=== PATIENT | male | born 1980 | race African-American/Black ===

== ENCOUNTER 2016-09-22 18:09 | Emergency (ER) | payer MEDICAID ==
--- NOTE | 2016-09-22 18:29 | Emergency Department Record ---
History of Present Illness - General Stated Complaint: HEADACHE,HAND PAIN Time Seen by Provider: 09/22/16 18:22 Source: Patient Mode of Arrival: Ambulatory Limitations: No limitations - History of Present Illness Initial Comments: 36 yo male presents to ED with a CC of headache that began yesterday morning. Patient denies fevers, chills, or neck stiffness, and denies taking anything for his headache pain at home. Patient denies head injury or trauma, denies the use of anticoagulation medications, and denies health problems. 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 MD Complaint: Headache Onset/Timin -: Days(s) Onset Description: Gradual Location: Diffuse Severity: Moderate Quality: Throbbing Consistency: Constant Improves With: Nothing Worsens With: None Treatments Prior to Arrival: None - Related Data Home Medications Medication Instructions Recorded Confirmed Last Taken No Home Med [NO HOME MEDS] 04/27/16 04/27/16 Unknown Allergies Allergy/AdvReac Type Severity Reaction Status Date / Time No Known Drug Allergies Allergy Verified 04/27/16 08:12 Review of Systems Constitutional: Denies: Chills, Fever, Malaise, Night sweats Eyes: Denies: Eye discharge, Eye pain, Photophobia ENT: Denies: Congestion, Ear pain, Epistaxis Respiratory: Denies: Cough, Dyspnea Cardiovascular: Denies: Chest pain, Dyspnea on exertion Endocrine: Denies: Fatigue, Heat or cold intolerance Gastrointestinal: Denies: Abdominal pain, Nausea, Vomiting Genitourinary: Denies: Incontinence, Retention Musculoskeletal: Reports: Arthralgia (right hand pain). Denies: Back pain, Gout , Joint swelling Skin: Denies: Bruising, Change in color Neurological: Reports: Headache. Denies: Abnormal gait, Confusion Psychiatric: Denies: Anxiety Hematological/Lymphatic: Denies: Anemia, Blood Clots Past Medical History - SOCIAL HISTORY Smoking Status: Light tobacco smoker (<10/day) Drug Use: None - RESPIRATORY Hx Respiratory Disorders: No - CARDIOVASCULAR Hx Cardio Disorders: No - NEURO Hx Neuro Disorders: No - GI Hx GI Disorders: No - Hx Genitourinary Disorders: No - ENDOCRINE Hx Endocrine Disorders: No - MUSCULOSKELETAL Hx Musculoskeletal Disorders: No - PSYCH Hx Psych Problems: No - HEMATOLOGY/ONCOLOGY Hx Hematology/Oncology Disorders: No Family Medical History Hx Diabetes: Mother, Grandparents Physical Exam - General General Appearance: Alert, Oriented x3, Cooperative Limitations: No limitations - Head Head exam: Atraumatic, Normocephalic, Normal inspection Head exam detail: negative: Abrasion, Contusion, Whitfield's sign, General tenderness, Hematoma, Laceration - Eye Eye exam: Normal appearance. negative: Conjunctival injection, Periorbital swelling, Periorbital tenderness - ENT Ear exam: negative: Auricular hematoma, Auricular trauma Nasal Exam: negative: Active bleeding, Discharge, Dried blood, Foreign body Mouth exam: negative: Drooling, Muffled voice, Tongue elevation - Neck Neck exam: Normal inspection. negative: Meningismus, Tenderness - Respiratory Respiratory exam: Normal lung sounds bilaterally. negative: Respiratory distress, Rhonchi, Stridor, Wheezes - Cardiovascular Cardiovascular Exam: Regular rate, Normal rhythm, Normal heart sounds - GI/Abdominal GI/Abdominal exam: Soft - Rectal Rectal exam: Deferred - exam: Deferred - Extremities Extremities exam: Tenderness, Other (Mild STS present to the dorsum of the hand between the index/middle metacarpals with extension, FROM, firer watertender strength normal) . negative: Calf tenderness, Pedal edema - Back Back exam: Denies: CVA tenderness (R), CVA tenderness (L) - Neurological Neurological exam: Alert, Normal gait, Oriented X3 - Psychiatric Psychiatric exam: Normal affect, Normal mood - Skin Skin exam: Normal color. negative: Abrasion Type of lesion: negative: abrasion Course Vital Signs 09/22/16 18:17 Temperature 98.3 F Pulse Rate [ 67 Pulse Ox Probe] Respiratory 14 Rate Blood Pressure 147/85 [Left Arm] Pulse Ox 99 - Reevaluation(s) Reevaluation #1: 09/22/16 19:12 Right hand: No acute process Reevaluation #2: 09/22/16 19:20 Patient reassessed, reports that his headache symptoms are much improved, appears stable for discharge at this time. Disposition Disposition: Discharge Clinical Impression: Hand strain Qualifiers: Encounter type: initial encounter Laterality: right Qualified Code(s): S66.911A - Strain of unspecified muscle, fascia and tendon at wrist and hand level, right hand, initial encounter Cephalalgia Qualifiers: Headache type: unspecified Headache chronicity pattern: acute headache Intractability: not intractable Qualified Code(s): R51 - Headache Disposition: Home, Self-Care Condition: (2) Stable Instructions: Acute Headache (ED) Additional Instructions: Return to ED if your symptoms worsen or if you have any concerns. Ibuprofen as directed. Follow-up with your family doctor in 3-5 days as directed. Time of Disposition: 19:13
[2016-09-22] MEDS: KETOROLAC 60 MG/2 ML VIAL IM STA (18:48)
== END 2016-09-22 19:26 | disposition home or self-care (01) ==
LOC: ER 18:09
DX: S66.911A Strain of unspecified muscle, fascia and tendon at wrist and hand level, right hand, initial encounter (principal); R51 Headache; M79.641 Pain in right hand; X58.XXXA Exposure to other specified factors, initial encounter
CPT/HCPCS: 96372; 99283; J1885

== ENCOUNTER 2017-05-17 19:33 | Emergency (ER) | payer MEDICAID ==
--- NOTE | 2017-05-17 20:24 | Emergency Department Record ---
History of Present Illness - General Chief complaint: Extremity Problem Stated complaint: LEFT LEG PAIN Time Seen by Provider: 05/17/17 20:12 Source: Patient Mode of Arrival: Ambulatory Limitations: No limitations - History of Present Illness Initial comments: The patient is here with a complaint of intermittent L leg numbness and pain for 2 weeks. The symptoms seem to come and go and affect the L leg below the knee. The symptoms mainly come on with walking and sitting up but do resolve when lying and not walking. He denies any trauma, any injury, swelling, fever, chills, or weakness. Presently the symptoms have completely resolved. MD Complaint: Extremity pain Onset/Timin -: Week(s) Location: Left, Lower Leg Quality: Aching Consistency: Intermittent - Related Data Previous Rx's Medication Instructions Recorded Naproxen [Naprosyn] 500 mg PO BID #14 tablet. 05/17/17 Allergies Allergy/AdvReac Type Severity Reaction Status Date / Time No Known Drug Allergies Allergy Unverified 05/07/17 17:16 Review of Systems Constitutional: Denies: Chills, Fever Eyes: Denies: Eye discharge ENT: Denies: Congestion Respiratory: Denies: Cough, Dyspnea Past Medical History - SOCIAL HISTORY Smoking Status: Light tobacco smoker (<10/day) Drug Use: None - RESPIRATORY Hx Respiratory Disorders: No - CARDIOVASCULAR Hx Cardio Disorders: No - NEURO Hx Neuro Disorders: No - GI Hx GI Disorders: No - Hx Genitourinary Disorders: No - ENDOCRINE Hx Endocrine Disorders: No - MUSCULOSKELETAL Hx Musculoskeletal Disorders: No - PSYCH Hx Psych Problems: No - HEMATOLOGY/ONCOLOGY Hx Hematology/Oncology Disorders: No Family Medical History Hx Diabetes: Mother, Grandparents Physical Exam - General General Appearance: Alert, Oriented x3, Cooperative, No acute distress - Head Head exam: Atraumatic, Normocephalic, Normal inspection - Eye Eye exam: Normal appearance, PERRL - Neck Neck exam: Normal inspection, Full ROM. negative: Tenderness - Respiratory Respiratory exam: Normal lung sounds bilaterally. negative: Respiratory distress - Cardiovascular Cardiovascular Exam: Regular rate, Normal rhythm, Normal heart sounds - GI/Abdominal GI/Abdominal exam: Soft, Normal bowel sounds. negative: Tenderness - Extremities Extremities exam: Normal inspection (There is no swelling, bruising or edema appreciated.), Full ROM, Normal capillary refill, Other (DP and PT pulses are 2 + and equal bilaterally.). negative: Calf tenderness, Joint swelling, Pedal edema, Tenderness - Neurological Neurological exam: Alert, Normal gait, Oriented X3, Reflexes normal. negative: Abnormal gait, Altered, Motor sensory deficit - Skin Skin exam: negative: Petechiae, Rash Course Vital Signs 05/17/17 20:12 Temperature 98.4 F Pulse Rate [ 79 Pulse Ox Probe] Respiratory 18 Rate Blood Pressure 109/67 [Right Arm] Pulse Ox 100 - Reevaluation(s) Reevaluation #1: The patient is resting comfortably at this time. He actually is snoring VERY loudly and is in a deep sleep prior to receiving any pain medicines. I did explain to him the lab work does not demonstrate any cause for his pain. We will refer the patient to his PCP for further evaluation. 05/17/17 21:25 Reevaluation #2: The patient is resting comfortably. He denies any pain or discomfort at this time. He is to F/U with his PCP for recheck next week. 05/17/17 21:49 Medical Decision Making - Data Complexity MDM Data: Labs Ordered and/or Reviewed - Lab Data Result diagrams: 05/17/17 20:37 05/17/17 20:37 Disposition Disposition: Discharge Clinical Impression: Leg pain, left Disposition: Home, Self-Care Condition: (2) Stable Instructions: Leg Pain (ED) Additional Instructions: Please take the naprosyn for pain and see your PCP next week for recheck. Return to the ER for any worsening or new symptoms. Prescriptions: Naproxen [Naprosyn] 500 mg PO BID #14 tablet.dr Forms: Patient Portal Access Time of Disposition: 21:51 Quality - Quality Measures Quality Measures: N/A - Blood Pressure Screening View Details: Yes Does Patient Have Any of the Following: No Blood Pressure Classification: Normal BP Reading Systolic Measurement: 109 Diastolic Measurement: 67 Screening for High Blood Pressure: < Normal BP, F/U Not Required > [G8783]
[2017-05-17 20:43] LABS: BASO % 0.3 % (0-6); EOS % 2.3 % (0-6); HEMATOCRIT 42.5 % (42.0-52.0); HEMOGLOBIN 14.2 gm/dl (14.0-18.0); LYMPH % 29.7 % (16-45); MEAN CELL VOLUME 87.1 fl (81-97); MEAN CORPUSCULAR HEMOGLOBIN 29.1 pg (27-33); MEAN CORPUSCULAR HGB CONC 33.4 g/dl (32-36); MONO % 7.7 % (0-9); PLATELET COUNT 256 K/uL (130-400); RED BLOOD COUNT 4.88 M/uL (4.40-5.70); RED CELL DISTRIBUTION WIDTH 13.5 % (11.5-14.5); WHITE BLOOD COUNT W/O DIFF 10.1 K/uL (4.2-12.2)
[2017-05-17 20:57] LABS: BLOOD UREA NITROGEN 18 mg/dL (6-20); EST GLOMERULAR FILTRATION RATE > 60 mL/min
[2017-05-17 20:58] LABS: TOTAL PROTEIN 7.1 g/dL (6.6-8.7)
[2017-05-17 21:00] LABS: GLUCOSE,RANDOM 122 mg/dL (74-109)
[2017-05-17 21:02] LABS: ALB/GLOB RATIO 1.4 (1.1-1.8); ALBUMIN 4.2 g/dL (4.0-5.0); ALKALINE PHOSPHATASE 68 U/L (40-129); ALT/SGPT 46 U/L (<41); AST/SGOT 21 U/L (10.0-50.0)
[2017-05-17 21:03] LABS: C-REACTIVE PROTEIN 1.01 mg/dL (<0.5)
[2017-05-17] MEDS ORDERED: KETOROLAC 30 MG/ML VIAL IM ONE (21:14)
== END 2017-05-17 22:04 | disposition home or self-care (01) ==
LOC: ER 19:33
DX: M79.662 Pain in left lower leg (principal); R20.0 Anesthesia of skin
CPT/HCPCS: 99283 ×2; 96372; 85025; 86140; 80053; J1885

== ENCOUNTER 2018-01-19 11:00 | Emergency (ER) | payer MEDICAID ==
--- NOTE | 2018-01-19 11:11 | Emergency Department Record ---
History of Present Illness - General Chief Complaint: Neck Injury/Pain Stated Complaint: CYST ON NECK Time Seen by Provider: 01/19/18 11:05 Source: Patient Mode of Arrival: Ambulatory Limitations: No limitations - History of Present Illness Initial Comments: 37 yo male presents with about 6 months of posterior neck pain from a cyst. He reports he was seen at [facility] ED and diagnosed with a cyst in the posterior aspect of the neck. He states the pain for 6 months has been fairly constant. He has been referred to a new family doctor in ER. He states he had a scan or US at the outside hospital. He was given a prescription for antibiotics be never filled them. No fever. No limitations in neck movement but it hurts to move the area. No significant changes in the size over 6 months. No anterior pain or trouble with swallowing. MD Complaint: Neck pain -: Month(s) (6) Place: Home Radiation: Other (Posterior neck) Severity: Moderate Quality: Aching Consistency: Constant Improves With: None Worsens With: Movement of neck Associated Symptoms: Other (Pain) Treatments Prior to Arrival: None (He did not fill his prescription) - Related Data Previous Rx's Medication Instructions Recorded Clindamycin HCl [Cleocin HCl] 300 mg PO QID #28 capsule 01/19/18 Naproxen [Naprosyn] 500 mg PO BID #20 tablet 01/19/18 Allergies Allergy/AdvReac Type Severity Reaction Status Date / Time No Known Drug Allergies Allergy Verified 01/19/18 11:09 Review of Systems Constitutional: Denies: Chills, Fever, Malaise, Weakness Eyes: Denies: Eye discharge, Eye pain, Photophobia, Vision change ENT: Denies: Congestion, Throat pain Respiratory: Denies: Cough Cardiovascular: Denies: Chest pain, Palpitations, Syncope Endocrine: Denies: Fatigue Gastrointestinal: Denies: Abdominal pain, Diarrhea, Nausea, Vomiting Genitourinary: Denies: Dysuria, Frequency, Hematuria Musculoskeletal: Denies: Arthralgia, Back pain, Myalgia Skin: Denies: Bruising, Change in color, Rash Neurological: Reports: Headache. Denies: Abnormal gait, Confusion, Numbness, Tingling, Vertigo, Weakness Psychiatric: Denies: Anxiety Hematological/Lymphatic: Denies: Blood Clots, Easy bleeding, Easy bruising, Swollen glands Past Medical History - SOCIAL HISTORY Smoking Status: Light tobacco smoker (<10/day) Drug Use: None - RESPIRATORY Hx Respiratory Disorders: No - CARDIOVASCULAR Hx Cardio Disorders: No - NEURO Hx Neuro Disorders: No - GI Hx GI Disorders: No - Hx Genitourinary Disorders: No - ENDOCRINE Hx Endocrine Disorders: No - MUSCULOSKELETAL Hx Musculoskeletal Disorders: No - PSYCH Hx Psych Problems: No - HEMATOLOGY/ONCOLOGY Hx Hematology/Oncology Disorders: No Family Medical History Hx Diabetes: Mother, Grandparents Physical Exam - General General Appearance: Alert, Oriented x3, Cooperative, No acute distress Limitations: No limitations - Head Head exam: Normal inspection Image of Face/Head: 1 - location of tenderness, normal inspection, no warmth, redness, or pus. No obvious fluctuance or abscess. No visible signs of infection at this time. - Eye Eye exam: Normal appearance, PERRL. negative: Conjunctival injection, Scleral icterus - ENT ENT exam: Mucous membranes dry, Mucous membranes moist, Normal orophraynx, TM's normal bilaterally Ear exam: Normal external inspection Nasal Exam: Normal inspection. negative: Active bleeding, Dried blood, Sinus tenderness Mouth exam: Normal external inspection Teeth exam: Normal inspection Throat exam: Normal inspection. negative: Tonsillar erythema, Tonsillomegaly, Tonsillar exudate, R peritonsillar mass, L peritonsillar mass - Neck Neck exam: Normal inspection, Full ROM, Tenderness (Tender posteriorly, no obvious warmth, redness, erythema, no fluctuance). negative: Lymphadenopathy, Meningismus - Respiratory Respiratory exam: Normal lung sounds bilaterally. negative: Respiratory distress - Cardiovascular Cardiovascular Exam: Regular rate, Normal rhythm, Normal heart sounds - GI/Abdominal GI/Abdominal exam: Soft - Extremities Extremities exam: Normal inspection - Neurological Neurological exam: Alert, CN II-XII intact, Normal gait, Oriented X3. negative : Motor sensory deficit - Psychiatric Psychiatric exam: Normal affect, Normal mood - Skin Skin exam: Dry, Intact, Normal color, Warm Course - Reevaluation(s) Reevaluation #1: The records from his prior [facility] visits were requested The examination is unremarkable at this time without obvious mass, fluctuance, warmth or redness. No limitation on ROM. 01/19/18 11:11 01/19/18 11:19 [facility] records obtained from 07/20/17 CT of the neck demonstrated a 10mm nodule posterior neck likely sebaceous cyst. 01/19/18 11:41 Bedside US was used to locate the cyst noted on prior CT. The dimensions were 1.2 x 1.2cm similar to prior CT. No signs today of acute infection, warmth or complication form 06/2017. His prescriptions were rewritten. He was given a referred to the outpatient surgery clinic for the cyst that has been present about 6 months. Disposition Disposition: Discharge Clinical Impression: Sebaceous cyst Disposition: Home, Self-Care Condition: (1) Good Instructions: Epidermal Inclusion Cysts (ED) Additional Instructions: Take the antibiotics as directed Return or be seen if swelling, fever, warmth, redness, or any new concerns You have been referred to the outpatient surgery clinic for evaluation of the cyst in your neck Prescriptions: Clindamycin HCl [Cleocin HCl] 300 mg PO QID #28 capsule Naproxen [Naprosyn] 500 mg PO BID #20 tablet Referrals: [facility] Special[facility] [Provider Group] Rinku Yoo [DOCTOR OF OSTEOPATH] - Forms: Patient Portal Access Time of Disposition: 11:41 Quality - Quality Measures Quality Measures: N/A - Blood Pressure Screening Does Patient Have Any of the Following: No Blood Pressure Classification: Pre-Hypertensive BP Reading Systolic Measurement: 134 Diastolic Measurement: 79 Screening for High Blood Pressure: < Pre-Hypertensive BP, F/U Documented > [ G8950] Pre-Hypertensive Follow-up Interventions: Referral to alternative/primary care provider.
[2018-01-19] MEDS ORDERED: CLINDAMYCIN 150 MG CAP PO ONE (11:34)
[2018-01-19] MEDS ORDERED: NAPROXEN 250 MG TABLET PO ONE (11:34)
== END 2018-01-19 11:57 | disposition home or self-care (01) ==
LOC: ER 11:00
DX: L72.3 Sebaceous cyst (principal); M54.2 Cervicalgia; F17.210 Nicotine dependence, cigarettes, uncomplicated
CPT/HCPCS: 99283

== ENCOUNTER → 2018-02-16 | Day surgery (SDC) | payer MEDICAID ==
[~2018-02-16] MED LIST: ACETAMINOPHEN 1,000 MG/100 ML BTL IV ONE; BUPIVACAINE 0.25% W/EPI MPF 30ML VIAL IVP ONE; DESFLURANE 240 ML BTL INH ONE; DEXAMETHASONE 4 MG/ML 1ML VIAL IVP ONE; FAMOTIDINE 20MG TABLET PO ONE; FENTANYL PF 100MCG/2ML VIAL IV ONE; HYDROCODONE/APAP 5/325MG TABLET PO ONE; KETOROLAC 30 MG/ML VIAL IVP ONE; LIDOCAINE 2% MDV (20MG/ML) 20ML VIAL IV ONE; MECLIZINE 25 MG TABLET PO ONE; METOCLOPRAMIDE 10 MG TABLET PO ONE; MIDAZOLAM HCL 2MG/2ML VIAL IV ONE; ONDANSETRON HCL IV 4 MG/2 ML VIAL IVP ONE; PROPOFOL 10 MG/ML VIAL IV ONE
--- NOTE | 2018-02-17 15:30 | Operative Note ---
DATE OF SURGERY: 02/16/2018 Surgeon: Rinku Yoo DO PREOPERATIVE DIAGNOSIS: Chronic infected sebaceous cyst posterior neck. POSTOPERATIVE DIAGNOSIS: Chronic infected sebaceous cyst posterior neck. OPERATION: Excision of sebaceous cyst. Indication: The patient is a 37-year-old male who has had a long-standing draining posterior neck mass. This had the consistency of probably a chronic sebaceous cyst. We did discuss excision. Risks, benefits, and alternatives were discussed. Risks include bleeding, infection, postop wound infection, possibility of needing this to stay opened and packed. He understood this fully. Thereafter, consent was signed and questions answered. PROCEDURE: The patient was taken to the operating room and placed in a supine position. General anesthesia was administered per the department of anesthesia. The patient was rotated into right lateral position. His neck was prepped and draped in the usual fashion. The area around the mass was anesthetized with a total of 10 mL of 0.25% Sensorcaine with epinephrine. Elliptical incision was made incorporating the puncta. This was carried down to remaining abscess cavity. This was completely excised. This measured at 3 x 3 cm. I cannot close the wound secondary to the active infection; therefore, this wound was then irrigated and packed with iodoform gauze. He was given instructions on wound and I will see him back in about 2 weeks. Thank you for this referral. CC: NEVIN Randolph
== END | disposition home or self-care (01) ==
LOC: SUR 08:44
PROVIDERS: ATTEND Surgery
DX: L72.3 Sebaceous cyst (principal); I10 Essential (primary) hypertension; E66.9 Obesity, unspecified
CPT/HCPCS: 21552; 00300; J1885; J2405; J3010

== ENCOUNTER 2018-02-25 11:34 | Emergency (ER) | payer MEDICAID ==
[2018-02-25 12:25] LABS: BASO % 0.4 % (0-6); EOS % 1.4 % (0-6); GRAN % 62.9 % (47-80); HEMATOCRIT 46.1 % (42.0-52.0); HEMOGLOBIN 15.3 gm/dl (14.0-18.0); LYMPH % 25.8 % (16-45); MEAN CELL VOLUME 86.7 fl (81-97); MEAN CORPUSCULAR HEMOGLOBIN 28.8 pg (27-33); MEAN CORPUSCULAR HGB CONC 33.2 g/dl (32-36); MEAN PLATELET VOLUME 9.4 fl (7.4-10.4); MONO % 9.5 % (0-9); PLATELET COUNT 268 K/uL (130-400); RED BLOOD COUNT 5.32 M/uL (4.40-5.70); RED CELL DISTRIBUTION WIDTH 13.8 % (11.5-14.5); WHITE BLOOD COUNT W/O DIFF 9.9 K/uL (4.2-12.2)
[2018-02-25 12:36] LABS: BLOOD UREA NITROGEN 21 mg/dL (6-20)
[2018-02-25 12:37] LABS: CREATININE 1.2 mg/dL (0.7-1.2); EST GLOMERULAR FILTRATION RATE > 60 mL/min
[2018-02-25 12:39] LABS: GLUCOSE,RANDOM 106 mg/dL (74-109)
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
== END 2018-02-25 15:04 | disposition home or self-care (01) ==
LOC: ER 11:34
DX: G89.18 Other acute postprocedural pain (principal); I10 Essential (primary) hypertension
CPT/HCPCS: 70491; 80048; 85025; 99283

== ENCOUNTER 2018-09-14 19:30 | Emergency (ER) | payer MEDICAID ==
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
[2018-09-14] MEDS ORDERED: IBUPROFEN 600 MG TABLET PO ONE (21:13)
--- NOTE | 2018-09-18 08:51 | RADIOLOGY REPORT ---
EXAM: LEFT FOOT HISTORY: ROLLED FOOT, PAIN AND SWELLING. TECHNIQUE: Three views of the left foot were obtained. Comparison: None. FINDINGS: No acute fracture is seen in the foot. No evidence of dislocation. Suggestion of mild nonspecific soft tissue swelling in the forefoot region. IMPRESSION: NO ACUTE OSSEOUS FINDINGS. JOB NUMBER: [id number] MTDD
== END 2018-09-14 21:35 | disposition home or self-care (01) ==
LOC: ER 19:30
DX: S90.32XA Contusion of left foot, initial encounter (principal); H61.21 Impacted cerumen, right ear; W01.10XA Fall on same level from slipping, tripping and stumbling with subsequent striking against unspecified object, initial encounter; I10 Essential (primary) hypertension; F17.210 Nicotine dependence, cigarettes, uncomplicated
CPT/HCPCS: 99283

== ENCOUNTER 2018-10-29 06:35 | Emergency (ER) | payer MEDICAID ==
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
== END 2018-10-29 06:53 | disposition home or self-care (01) ==
LOC: ER 06:35
DX: M70.90 Unspecified soft tissue disorder related to use, overuse and pressure of unspecified site (principal); M79.642 Pain in left hand; M79.641 Pain in right hand; M25.521 Pain in right elbow; I10 Essential (primary) hypertension; F17.210 Nicotine dependence, cigarettes, uncomplicated; X50.0XXA Overexertion from strenuous movement or load, initial encounter
CPT/HCPCS: 99282

== ENCOUNTER 2019-02-20 06:54 | Emergency (ER) | payer MEDICAID ==
[2019-02-20] MEDS ORDERED: MAGNESIUM HYDROXIDE/AL HYDROX 30 ML, LIDOCAINE VISC 2% 15ML 15 ML PO ONE ×2 (07:10)
[2019-02-20] MEDS ORDERED: PANTOPRAZOLE SODIUM 40 MG TABLET PO ONE (07:21)
[2019-02-20] MEDS ORDERED: AL HYDROX/MAG HYDROX 30ML UD PO ONE (07:21)
[2019-02-20] MEDS ORDERED: IPRATROPIUM/ALBUTEROL (0.5MG/3MG) NEB INH ONE (07:22)
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
[2019-02-20] MEDS ORDERED: ONDANSETRON HCL IV 4 MG/2 ML VIAL IVP ONE (07:28)
[2019-02-20] MEDS ORDERED: 0.9 % SODIUM CHLORIDE 1000ML 1,000 ML IV SCH (07:30)
[2019-02-20 08:06] LABS: ABSOLUTE NEUTROPHIL COUNT 4.73; BASO % 0.3 % (0-6); EOS % 2.7 % (0-6); GRAN % 52.9 % (47-80); HEMATOCRIT 45.8 % (42.0-52.0); HEMOGLOBIN 15.5 gm/dl (14.0-18.0); LYMPH % 35.6 % (16-45); MEAN CORPUSCULAR HEMOGLOBIN 28.8 pg (27-33); MEAN CORPUSCULAR HGB CONC 33.8 g/dl (32-36); MEAN PLATELET VOLUME 9.5 fl (7.4-10.4); MONO % 8.5 % (0-9); PLATELET COUNT 263 K/uL (130-400); RED BLOOD COUNT 5.39 M/uL (4.40-5.70); RED CELL DISTRIBUTION WIDTH 13.6 % (11.5-14.5); WHITE BLOOD COUNT W/O DIFF 8.9 K/uL (4.2-12.2)
[2019-02-20 08:19] LABS: BLOOD UREA NITROGEN 15 mg/dL (6-20); CREATININE 0.9 mg/dL (0.7-1.2); EST GLOMERULAR FILTRATION RATE > 60 mL/min
[2019-02-20 08:22] LABS: GLUCOSE,RANDOM 134 mg/dL (74-109)
--- NOTE | 2019-02-23 12:13 | RADIOLOGY REPORT ---
STUDY: Chest 2 views. CLINICAL HISTORY: Intermittent epigastric pain with reflux for 5 years. Episode of bloody emesis. TECHNIQUE: Upright PA and lateral views of the chest. COMPARISON: Two-view chest radiographic examination dated 10/12/2014. FINDINGS: The heart remains normal in size. No pulmonary venous hypertension is seen. The lung exam pleural spaces remain clear. No acute osseous abnormality. No free intraperitoneal air. IMPRESSION: No radiographic evidence of acute cardiopulmonary disease. MTDD
== END 2019-02-20 08:55 | disposition home or self-care (01) ==
LOC: ER 06:54
DX: K21.9 Gastro-esophageal reflux disease without esophagitis (principal); J20.9 Acute bronchitis, unspecified; I10 Essential (primary) hypertension; F17.210 Nicotine dependence, cigarettes, uncomplicated
CPT/HCPCS: 99284 ×2; 96374; 85025; 80048; 71046; 94640; J2405; J7030